=== PATIENT | male | born 1960 | race Caucasian/White ===

== ENCOUNTER 2019-10-06 11:21 | Emergency (ER) | payer SELFPAY | END 2019-10-06 14:32 | disposition home or self-care (01) | PROVIDERS: Emergency Provider Family Medicine; Family Provider Family Medicine; Visit Provider Family Medicine | DX: S61.411A Laceration without foreign body of right hand, initial encounter (principal); X58.XXXA Exposure to other specified factors, initial encounter; Y92.009 Unspecified place in unspecified non-institutional (private) residence as the place of occurrence of the external cause; Z23 Encounter for immunization; Z87.891 Personal history of nicotine dependence; Z88.5 Allergy status to narcotic agent; I10 Essential (primary) hypertension | CPT/HCPCS: 12001; 73130; 90471; 90715; 99282; J2001 ==

== ENCOUNTER 2023-04-15 10:09 | Emergency (ER) | payer MEDICARE, SELFPAY ==
[2023-04-15 10:13] VITALS: BP 137/61; PULSE 59; RESP 17; TEMP 37; O2SAT 97; BMI 20.7
--- NOTE | 2023-04-15 11:26 | PC.PHAR ---
pt states he stop taking his digoxin 250mcg po daily in january 2023 ext med history shows last filled 10/09/22 90d/s-pt states he just didnt want to take anymore states he doesnt like taking pills-
--- NOTE | 2023-04-15 12:46 | ED_ITS ---
HPI - Eye Problem General: Chief complaint: Eye Problems Stated complaint: eye problems Time Seen by Provider: 04/15/23 10:46 Source: patient Mode of arrival: ambulatory History of Present Illness: 63-year-old male presents emergency room with a rash on the left forehead and into the scalp including his left upper eyelid is causing redness and irritation to the left eye. The eye irritation began worsening this morning the rash appeared 2 days ago is a single spot and has spread. This morning the rash had spread considerably about the forehead and left upper eyelid. It stops at the midline.. He has not previously had anything like this. He is describes a burning pain throughout his scalp and face on the left side only does not involve the tip of the nose or the ear. MD chief complaint: eye pain and eye redness Onset (ago): hour(s) Onset description: awoke with symptoms Duration: constant Location: left eye Eye Symptoms: burning, redness, pain and foreign body sensation Place: home Mechanism: none Severity: severe If Pain, Quality: burning Associated symptoms: Reports nausea; Denies cough, fever(s), headache(s), neck pain, numbness, rhinorrhea, short of breath, vomiting or weakness Treatments Prior to Arrival: none Review of Systems Const: Reports: body aches; Denies: fever(s), chills, fatigue or malaise ENMT: Denies: throat pain, ear or mastoid pain, nasal discharge or nasal congestion Card: Denies: chest pain, edema, dyspnea on exertion or orthopnea Resp: Denies: dyspnea, productive cough or non-productive cough GI: Reports: nausea; Denies: abdominal pain or vomiting : Denies: flank pain, dysuria, urinary frequency or urinary urgency Musc: Denies: neck pain Skin/Breast: Reports: rash, pruritus, erythema, skin pain, skin tenderness, sores and new lesions Neuro: Denies: headache(s) Physical Exam Const: GENERAL APPEARANCE: cooperative and comfortable ORIENTATION/CONSCIOUSNESS: Yes awake, Yes oriented to person, Yes oriented to place and Yes oriented to time HENMT: COMMON NORMALS: normocephalic, atraumatic and hearing grossly normal bilaterally HEAD & SCALP: normocephalic and atraumatic Eye: OTHER: Redness and inflammation to the globe of the eye the sclera and the conjunctiva there is no vesicles noted on the eye. The eyelid is inflamed as well. Resp: COMMON NORMALS: normal respiratory effort, No retractions, No use of accessory muscles and clear to auscultation bilaterally AUSCULTATION: clear to auscultation bilaterally Cardio: COMMON NORMALS: regular rate, regular rhythm and No murmurs present (Cardio) RATE: regular rate RHYTHM: regular rhythm GI: COMMON NORMALS: Soft to palpation and No hepatosplenomegaly present AUSCULTATION: Yes normoactive bowel sounds PALPATION: Yes Soft to palpation, No Tenderness to palpation present (GI), No Guarding due to palpation present (GI) and Yes No hepatosplenomegaly present Extremity: COMMON NORMALS: normal to inspection, capillary refill normal, no clubbing, cyanosis or edema, no calf tenderness and no pedal edema Neuro: SENSORIUM/ORIENTATION: Yes oriented to person, Yes oriented to place a nd Yes oriented to time Skin: OTHER: Vesicular rash in dermatomal pattern affecting the ophthalmic division of the trigeminal nerve on the left side includes the eye sparing the tip of the nose and the ear Course Vital Signs: Vital signs: Vital Signs Temperature 98.6 F 04/15/23 10:13 Pulse Rate 59 L 04/15/23 10:13 Respiratory Rate 17 04/15/23 10:13 Blood Pressure 137/61 04/15/23 10:13 Pulse Oximetry 97 04/15/23 10:13 Oxygen Delivery Me thod Room Air 04/15/23 10:13 MDM - Eye Problem Medical Decision Making Varicella-zoster. Does not involve the eye. Start valacyclovir 1 g every 8 hours x10 days. Called and talked to ophthalmology they will see the patient this afternoon at 1:00. Also give the patient hydrocodone for pain encouraged him to keep the ophthalmology appointment he will need treatment for the eye and monitoring as well. Return if he has worsening problems. Medical Records I reviewed the patient's medical records. Lab Data I reviewed the patient's lab results. Discharge Plan Discharge Patient Disposition: Home Clinical Impression: Varicella zoster Condition: Stable Prescriptions: New valacyclovir 1 gram tablet 1,000 mg PO Q8H 10 Days Qty: 30 0RF hydrocodone-acetaminophen 5-325 mg tablet 1 tab PO Q6H PRN (Reason: pain) Qty: 20 0RF No Action alprazolam 0.5 mg tablet 0.5 mg PO QID PRN (Reason: Anxiety) ibuprofen 200 mg Tablet 400 mg PO Q6H PRN (Reason: Pain) naproxen 500 mg tablet 500 mg PO TID PRN (Reason: Pain) Discharge Orders: Discharge ED (Routine); Ordered 04/15/23 Ordered By: Jose Benavides Referrals: Amari Chavez MD [Primary Care Provider] - Discharge Diet: Usual diet Discharge Activity: Increase activity as tolerated Patient Instructions: Shingles (ED), Opioid Safety, Pain Management Activity Restrictions/Additional Instructions: You were seen today with shingles. After discharge recommend to go to see Dr. Betancur at his office at 1:00 today they will address to the extent that treatment is needed specifically for involvement of the eye Coding Level of Care Code ED [employer]ailing [employer] for Cindy Jean Baptiste
== END 2023-04-15 11:47 | disposition home or self-care (01) ==
PROVIDERS: Emergency Provider Family Medicine; PCP Family Medicine
DX: B01.9 Varicella without complication (principal)
CPT/HCPCS: 99283

== ENCOUNTER → 2024-01-01 12:52 | Outpatient (BNVA) | payer MEDICARE, SELFPAY | PROVIDERS: PCP Family Medicine; Referring Provider Family Medicine; Visit Provider Specialist | DX: M67.432 Ganglion, left wrist | CPT/HCPCS: 20612; 73110; 99204 ==